=== PATIENT | male | born 1980 | race Caucasian/White ===

== ENCOUNTER 2025-08-20 10:47 | Emergency (ER) | payer BC, OTHER | END 2025-08-20 13:05 | disposition home or self-care (01) | LOC: LL.ED 10:47 | DX: J02.0 Streptococcal pharyngitis (principal); Z91.048 Other nonmedicinal substance allergy status; Z79.899 Other long term (current) drug therapy | CPT/HCPCS: 87651; 96372; 99283; J0561 ==